=== PATIENT | female | born 1935 | race Caucasian/White ===

== ENCOUNTER 2016-03-30 17:54 | Inpatient (IN) | payer MEDICARE, BC ==
[~2016-03-30] VITALS: Ht 157.5 cm; Wt 46.7 kg
[~2016-03-30 17:54] MED LIST: ARICEPT5 MG PO; ATIVAN0.5 MG PO; ATIVAN1 MG PO; BREO ELLIPTA 11 EACH INH; COMBIVENT RESPIM4 GM INH; EFFEXOR50 MG PO; FERROUS SULFAT325 MG PO; FLORAJEN3 CAPS460 MG PO; FUROSEMIDE20 MG PO; IPRAT-ALBUT 0.5-3 ML INH; K-TAB10 MEQ PO; LEVAQUIN500 MG PO; MEGACE40 MG PO; METOPROLOL TART50 MG PO; MIRALAX17 GM PO; MUCINEX600 MG PO; NORVASC10 MG PO; NORVASC5 MG PO; NYSTATIN ORAL SU5 ML PO; PEPCID20 MG PO; PLAVIX75 MG PO; PRAVACHOL20 MG PO; PROVENTIL/2.5 MG/3 M INH; SINGULAIR10 MG PO; TOPROL XL25 MG PO; VITAMIN D5000 UNIT PO
[2016-03-30 19:01] LABS: BASOPHILS 0.3 % (0.0-2.0); EOSINOPHILS 3.1 % (0-7); HEMOGLOBIN 10.6 g/dL (12-16); IMMATURE GRANULOCYTES 0.3 % (0-5); LYMPHOCYTES 5.1 % (15-50); MCH 24.8 pg (26.0-34.0); MCHC 31.2 g/dL (31.0-37.0); MCV 79.6 fL (80.0-100.0); MEAN PLATELET VOLUME 8.8 fL (7.4-10.4); MONOCYTES 7.1 % (2-11); NEUTROPHILS 84.1 % (40-80); PLATELET COUNT 520 10x3/uL (130-400); RBC 4.27 10x6/uL (4.00-5.40); RDW 17.8 % (11.5-14.5)
[2016-03-30 19:18] LABS: ALBUMIN 2.6 g/dL (3.4-5.0); ANION GAP 12.6 mmol/L (8-16); BILIRUBIN - TOTAL 0.52 mg/dL (0.2-1.3); CALCIUM 9.1 mg/dL (8.5-10.1); CARBON DIOXIDE 29.5 mmol/L (21.0-32.0); CREATININE - SERUM 0.8 mg/dL (0.6-1.3); POTASSIUM - SERUM 4.1 mmol/L (3.5-5.1); PROTEIN - SERUM 7.4 g/dL (6.4-8.2)
[2016-03-30 19:41] LABS: APPEARANCE CLEAR (CLEAR); BILIRUBIN NEGATIVE (NEGATIVE); COLOR YELLOW (YELLOW); GLUCOSE NEGATIVE (NEGATIVE); KETONE NEGATIVE (NEGATIVE); LEUKOCYTE ESTERASE NEGATIVE (NEGATIVE); NITRITE NEGATIVE (NEGATIVE); PROTEIN NEGATIVE (NEGATIVE); UROBILINOGEN NORMAL (NORMAL)
[2016-03-31] VITALS (7 sets, daily range): BP systolic 106–154; BP diastolic 48–69; Ht 157.5 cm; Wt 46.7 kg
--- NOTE | 2016-03-31 14:26 | NUR ---
PATIENT IN BED WITH EYES CLOSED RESTING QUIETLY. NO COMPLAINTS OR SIGNS OF DISTRESS. CALL LIGHT WITHIN REACH.
--- NOTE | 2016-03-31 20:03 | NUR ---
RECEIVED PT RESTING IN BED QUIETLY. NO SIGNS OF DISTRESS, NO COMPLAINTS OF PAIN. PT DENIES NEEDS AT THIS TIME.
--- NOTE | 2016-03-31 22:39 | NUR ---
PT RESTING IN BED. NIGHT MEDS PASSED. NO COMPLAINTS AT THIS TIME. WILL MONITOR.
--- NOTE | 2016-04-01 01:30 | NUR ---
PT SLEEPING. NO SIGNS OF DISTRESS. RESPIRATIONS EVEN AND UNLABORED. BED LOW, CALL LIGHT IN REACH, DOOR OPEN.
--- NOTE | 2016-04-01 03:21 | NUR ---
PT SLEEPING. BED LOW, CALL LIGHT IN REACH, DOOR OPEN.
[2016-04-01 04:00] VITALS: BP 140/61
[2016-04-01 05:52] LABS: BASOPHILS 0.3 % (0.0-2.0); EOSINOPHILS 5.2 % (0-7); HEMATOCRIT 33.6 % (36.0-48.0); HEMOGLOBIN 10.4 g/dL (12-16); IMMATURE GRANULOCYTES 0.2 % (0-5); LYMPHOCYTES 6.4 % (15-50); MCH 24.6 pg (26.0-34.0); MCV 79.4 fL (80.0-100.0); MEAN PLATELET VOLUME 9.1 fL (7.4-10.4); MONOCYTES 10.5 % (2-11); NEUTROPHILS 77.4 % (40-80); PLATELET COUNT 457 10x3/uL (130-400); RBC 4.23 10x6/uL (4.00-5.40); RDW 17.7 % (11.5-14.5); WBC 9.9 10x3/uL (4.8-10.8)
[2016-04-01 06:08] LABS: CALC OSMOLALITY 262 mosm/kg (275-300); CALCIUM 8.8 mg/dL (8.5-10.1); CARBON DIOXIDE 29.6 mmol/L (21.0-32.0); CHLORIDE - SERUM 96 mmol/L (98-107); CREATININE - SERUM 0.7 mg/dL (0.6-1.3); GLUCOSE 106 mg/dL (74-106); MAGNESIUM - SERUM 1.8 mg/dL (1.8-2.4); PHOSPHOROUS 3.2 mg/dL (2.5-4.9); POTASSIUM - SERUM 3.9 mmol/L (3.5-5.1); SODIUM 132 mmol/L (136-145); eGFR NON AFRICAN AMERICAN 85 mL/min (90-120)
[2016-04-01 06:10] LABS: UREA NITROGEN 6 mg/dL (7-18)
[2016-04-01 08:22] VITALS: BP 132/69
[2016-04-01 12:23] VITALS: BP 137/68
--- NOTE | 2016-04-01 15:47 | NUR ---
PATIENT IS RESTING QUIETLY WITH EYES CLOSED. HOB 30 DEGREES. BED IN LOWEST POSITION, CALL LIGHT IN REACH. BED RAILS UP X'S 2.
[2016-04-01 16:38] VITALS: BP 139/66
--- NOTE | 2016-04-01 19:35 | NUR ---
RECIEVED SHIFT REPORT. PT IS LYING IN BED. ALERT AND ORIENTED AND ABLE TO VERBALIZE NEEDS. IV IS PATENT AND SALINE LOC AT THIS TIME. SCD' ON. O2 @ 2 PER NASAL CANNULA. PT REQUIRES ASSISTANCE TURNING IN BED FOR COMFORT AND SKIN CARE. PT DENIES ANY PAIN AT THIS TIME. NO NEEDS ARE VERBALIZED AT THIS TIME. WILL CONTINUE TO MONITOR. SIDE RAILS ARE UP X 2. BED IS IN LOWEST POSITION. BOX ALARM ON FOR SAFETY. CALL LIGHT IS WITHIN REACH.
[2016-04-01 21:00] VITALS: BP 120/63
--- NOTE | 2016-04-01 22:37 | NUR ---
SHIFT ASSESSMENT COMPLETED. NIGHT MEDS GIVEN WITH NO PROBLEMS. SCHEDULED LORITAB HELD DUE TO PT DENYING PAIN. NO NEEDS ARE VOICED. WILL MONITOR. SIDE RAILS X 2. BED LOW. BOX ALARM ON. CALL LIGHT IN REACH.
[2016-04-02 02:00] VITALS: BP 159/83
--- NOTE | 2016-04-02 07:59 | NUR ---
DR. BESS HERE. AWAKE AND ALERT. ORIENTED X3. C/O SORE THROAT THIS AM. THIS IS NOT NEW. DIFLUCAN ORDERED PER MD. REPORTS OCCASSIONALLY PRODUCTIVE COUGH. LUNGS ARE CLEAR BILATERALLY. SKIN IS INTACT WITHOUT REDNESS. SL TO LEFT FOREARM PATENT WITHOUT REDNESS AT ISNERTION SITE. DENIES NEEDS. SCD'S OFF FOR NOW.
[2016-04-02 08:30] VITALS: BP 149/83
--- NOTE | 2016-04-02 09:30 | NUR ---
ATE ONLY A FEW BITES OF BREAKFAST. NO NEEDS EXPRESSED.
[2016-04-02 12:14] VITALS: BP 114/51
--- NOTE | 2016-04-02 12:26 | NUR ---
NUTRITION MONITORING & EVAL CHART REVIEWED. PT VISIT. NO INTAKE BREAKFAST. STATES SHE MAY EAT A LITTLE LUNCH. NOTE PT NOW ON [address]. RD FOLLOWING
--- NOTE | 2016-04-02 12:30 | NUR ---
LUNCH TRAY SERVED IN ROOM. REFUSED TO EAT. REFUSED OFFER OF ALTERNATIVE TRAY. MY THROAT IS SORE AND I CAN'T SWALLOW WELL. WILL MONITOR. ASSISTED WITH BED FRANCO. VOIDED ONLY 100cc DARK TEA COLORED. SKIN CARE PER STAFF.
--- NOTE | 2016-04-02 12:48 | NUR ---
Patient Name: IDANIA LUCIO Admission Status: ER Accout number: [id number] Admission Date: 03-30-2016 : 1935 Admission Diagnosis: Attending: GREG Current LOS: 3 Anticipated DC Date: 04-04-2016 Planned Disposition: Nursing Facility [facility] Primary Insurance: MEDICARE A & B Discharge Planning Comments: CM MET WITH PATIENT REGARDING D/C NEEDS AND PLANS. PATIENT STATED SHE LIVES AT [facility]. PATIENTS PCP IS DR. BESS AND IN HOUSE PHARMACY. PATIENT STATED SHE CAN WALK WITH HELP TO THE WHEELCHAIR AND IS LEARNING HOW TO MOVE AROUND IN IT AT THE FACILITY. CM WILL CONTINUE TO FOLLOW PATIENT WITH D/C NEEDS AND PLANS. PCP DR. BESS [facility] IN HOUSE DANIELLE JIMENEZ (BROTHER) [phone] Home Supervisor: Sindhu Gilman Is the patient Alert and Oriented? Yes 0 * How many steps to enter\exit or inside your home? 0 0 * PCP DR. BESS 0 * Pharmacy IN HOUSE AT [facility] 0 * Preadmission Environment [facility] * Facility Name [facility] 0 * ADLs Partial Dependent 0 * Partial ADLs (Assistance needed) Ambulation Bathing Dressing Medication Management Toileting Transfers 0 * Equipment Wheelchair 0 * List name and contact numbers for known caregivers / representatives who currently or will assist patient after discharge: DANIELLE JIMENEZ (BROTHER) [phone] * Community resources currently utilized None 0 * Additional services required to return to the preadmission environment? Yes 0 * Can the patient safely return to the preadmission environment? Yes 0 * Has this patient been hospitalized within the prior 30 days at any hospital? No 0 Grand Total: 0
--- NOTE | 2016-04-02 16:20 | NUR ---
RESTING QUIETLY. DENIES NEEDS. LINENS CHANGED PER STAFF FOR INCONTINENT EPISODE.
[2016-04-02 16:54] VITALS: BP 125/59
--- NOTE | 2016-04-02 19:35 | NUR ---
RECIEVED SHIFT REPORT. PT IS LYING IN BED. ALERT AND ORIENTED AND ABLE TO VERBALIZE NEEDS. IV IS PATENT AND SALINE LOC AT THIS TIME. PT REQUIRES ASSISTANCE TURNING IN BED FOR COMFORT AND SKIN CARE. O2 @ 2 PER NASAL CANNULA. PT REFUSES SCD'S AT THIS TIME. PT DENIES ANY PAIN AT THIS TIME. NO NEEDS ARE VERBALIZED. WILL CONTINUE TO MONITOR. SIDE RAILS ARE UP X 2. BED IS IN LOWEST POSITION. BOX ALARM IS ON FOR SAFETY. CALL LIGHT IS WITHIN REACH.
--- NOTE | 2016-04-02 19:37 | NUR ---
ATE A FEW BITES OF SUPPER. NO CHANGES NOTED. DENIES NEEDS.
[2016-04-02 21:00] VITALS: BP 111/59
--- NOTE | 2016-04-02 23:13 | NUR ---
SHIFT ASSESSMENT COMPLETED. NIGHT MEDS GIVEN WITH NO PROBLEMS. NO NEEDS ARE VOICED. WILL MONITOR. SIDE RAILS X 2. BED LOW. BOX ALARM ON. CALL LIGHT IN REACH.
[2016-04-03 00:21] VITALS: BP 134/61
[2016-04-03 05:00] VITALS: BP 137/69
[2016-04-03 06:45] LABS: BASOPHILS 0.4 % (0.0-2.0); EOSINOPHILS 3.5 % (0-7); HEMATOCRIT 33.1 % (36.0-48.0); HEMOGLOBIN 10.3 g/dL (12-16); IMMATURE GRANULOCYTES 0.2 % (0-5); LYMPHOCYTES 8.2 % (15-50); MCH 24.6 pg (26.0-34.0); MCHC 31.1 g/dL (31.0-37.0); MCV 79.2 fL (80.0-100.0); MEAN PLATELET VOLUME 9.2 fL (7.4-10.4); MONOCYTES 14.7 % (2-11); PLATELET COUNT 423 10x3/uL (130-400); RBC 4.18 10x6/uL (4.00-5.40); RDW 17.5 % (11.5-14.5); WBC 8.1 10x3/uL (4.8-10.8)
[2016-04-03 07:17] LABS: ALBUMIN 2.2 g/dL (3.4-5.0); ALKALINE PHOSPHATASE 112 U/L (46-116); ALT (SGPT) 9 U/L (10-68); BILIRUBIN - TOTAL 0.25 mg/dL (0.2-1.3); CALC OSMOLALITY 267 mosm/kg (275-300); CALCIUM 8.8 mg/dL (8.5-10.1); CARBON DIOXIDE 30.3 mmol/L (21.0-32.0); CHLORIDE - SERUM 97 mmol/L (98-107); CREATININE - SERUM 0.6 mg/dL (0.6-1.3); GLUCOSE 90 mg/dL (74-106); POTASSIUM - SERUM 3.9 mmol/L (3.5-5.1); PROTEIN - SERUM 6.6 g/dL (6.4-8.2); SODIUM 135 mmol/L (136-145); eGFR NON AFRICAN AMERICAN > 90 mL/min (90-120)
[2016-04-03 07:22] LABS: UREA NITROGEN 8 mg/dL (7-18)
[2016-04-03 07:53] VITALS: BP 119/65
--- NOTE | 2016-04-03 08:15 | NUR ---
AWAKE AND ALERT. SLIGHTLY CONFUSED TO SITUATION. REORIENTED PER STAFF. LUNGS HAVE FAINT CRACKLES ON LEFT SIDE, PRODUCTIVE COUGH CONTINUES. SKIN IS INTACT WITHOUT REDNESS. SL TO LEFT FOREARM IS PATENT WITHOUT REDNESS AT INSETION SITE. DENIES NEEDS.
[2016-04-03] MEDS ORDERED: ZITHROMAX500 MG PO (08:57)
[2016-04-03] MEDS ORDERED: DIFLUCAN100 MG PO (08:57)
[2016-04-03] MEDS ORDERED: Chloraseptic Spray [ TOPICAL (08:57)
[2016-04-03] MEDS ORDERED: VITAMIN D5000 UNIT PO (08:57)
[2016-04-03] MEDS ORDERED: CEFTRIAXON500 MG/VIA IM (08:57)
--- NOTE | 2016-04-03 10:52 | NUR ---
CM REASSESSMENT NOTE: PATIENT IS DISCHARGING BACK TO [facility] TODAY BY FACILITY VAN WITH O2 FOR THE PATIENT TO A SKILLED BED.
--- NOTE | 2016-04-03 12:15 | NUR ---
SL TO LEFT FOREARM D/C WITH CATHETER INTACT. DISCHARGED TO [facility]. REPORT CALLED TO CIRILO MORGAN LPN. ALL QUESTIONS ANSWERED. DISCHARGED PER THEIR TRANSPORT. FAMILY AWARE OF D/C.
--- NOTE | 2016-04-03 12:20 | NUR ---
WOUND CARE CONSULT: NOTED NO CHRONIC SKIN ISSUES. SLIGHT REDNESS TO BUTTOCKS/BLANCHABLE. PT DENIES TENDERNESS, BURNING. WILL CONTINUE TO MONITOR.
== END 2016-04-03 12:15 | DRG 190 ==
LOC: D.ER 17:54 → D.MS 23:44
PROVIDERS: Emergency Medicine; Physician Assistant; ADMIT Family Medicine
DX: J44.0 Chronic obstructive pulmonary disease with (acute) lower respiratory infection (principal); J18.9 Pneumonia, unspecified organism; I69.354 Hemiplegia and hemiparesis following cerebral infarction affecting left non-dominant side; D64.9 Anemia, unspecified; I10 Essential (primary) hypertension; M19.90 Unspecified osteoarthritis, unspecified site; E55.9 Vitamin D deficiency, unspecified; G30.9 Alzheimer's disease, unspecified; F02.80 Dementia in other diseases classified elsewhere, unspecified severity, without behavioral disturbance, psychotic disturbance, mood disturbance, and anxiety; F01.50 Vascular dementia, unspecified severity, without behavioral disturbance, psychotic disturbance, mood disturbance, and anxiety; G20 Parkinson's disease; F41.8 Other specified anxiety disorders; K21.9 Gastro-esophageal reflux disease without esophagitis; K59.00 Constipation, unspecified; Z87.891 Personal history of nicotine dependence